=== PATIENT | female | born 1985 | race Caucasian/White ===

== ENCOUNTER → 2017-03-08 | Outpatient (CLI) | payer BC, OTHER ==
[~2017-03-08] MED LIST: HYDR-3720 PO; HYDR-3812 PO; IBP800T PO; ONDA4TAB8 PO; PREN-142 PO
--- NOTE | 2017-03-08 20:17 | Diagnostic Imaging Report ---
EXAMINATION: OB ultrasound. INDICATION: survey. FINDINGS: heart rate is 150 beats per minute. The placenta is posterior. No placenta previa. The cervix is 4.6 cm in length and is closed. anatomy demonstrates no hydronephrosis or cystic mass in the kidney area. Unremarkable posterior fossa. No ventriculomegaly. The bladder is seen with suggestion of two umbilical arteries, and normal appearance of the four-chamber view and stomach is seen. The lower aspect of the spine is not well seen due to position. The growth parameters are: Biparietal diameter: 19 weeks and 2 days. Head circumference: 20 weeks and 1 day. Abdominal circumference: 20 weeks and 2 days. Femur length: 21 weeks and 0 days. These average at: 20 weeks and 2 days. This is concordant with gestational age of 20 weeks and 4 days based on COBY of 07/22/[address] Washington. IMPRESSION: Appropriate interval growth. Followup study in two weeks to reevaluate the lower spine, not well seen due to position, is recommended. Dictated by: Dictated on workstation # [id number]
== END ==
LOC: RAD 14:31
PROVIDERS: ATTEND Obstetrics & Gynecology
DX: Z36 Encounter for antenatal screening of mother (principal); Z87.51 Personal history of pre-term labor
CPT/HCPCS: 76805

== ENCOUNTER 2017-03-12 19:05 | Emergency (ER) | payer OTHER ==
[~2017-03-12] VITALS: Ht 167.6 cm; Wt 73.0 kg
[~2017-03-12 19:05] MED LIST changes: -HYDR-3812 PO; -ONDA4TAB8 PO; -PREN-142 PO
[2017-03-12] MEDS ORDERED: PREN-142 PO (19:26)
[2017-03-12] MEDS ORDERED: fentaNYL INJECTION 100 MCG/2 ML AMP IM STA (19:41)
[2017-03-12] MEDS ORDERED: ONDA4TAB8 PO (19:45)
[2017-03-12] MEDS ORDERED: HYDR-3812 PO (19:45)
[2017-03-12] MEDS ORDERED: ONDANSETRON 4 MG (ZOFRAN) ORAL DISSOLVE TAB PO ONE (19:45)
--- NOTE | 2017-03-12 19:45 | ED Headache ---
General Chief Complaint: Head/Cervical Problems Stated Complaint: MIGRAINE/21 WEEKS Nursing Triage Note: PT TO ED 7 FOR C/O DUQUE ONSET TODAY. REPORTS RECENT DUQUE OVER PAST 2 WKS ACCOMPANIED W/ VISION CHANGES. REPORTS SHE IS GETTING "SUJEY INJECTIONS" TO PREVENT LABOR AND THE DUQUE BEGAN AFTER. NO OTHER C/O VOICED Nursing Sepsis Screen: No Definite Risk Source: patient History of Present Illness Time seen by provider: 19:30 Initial Comments PT C/O HEADACHE SINCE 10:30 THIS AM HEADACHE IS BEHIND EYES, TOP OF HEAD AND POSTERIOR HEAD/UPPER NECK ALSO HAS BEEN HAVING VISION CHANGES TODAY--"STARBURST" AND DECREASED VISION TO LEFT EYE TODAY, BUT NOT RIGHT NOW + NAUSEA, NO VOMITING NO FEVER DID HAVE STREP THROAT 2 WEEKS AGO--SEEN AT [facility] AND GIVEN RX FOR CEFDINIR AND THOSE SYMPTOMS COMPLETELY RESOLVED. HAS NOT TAKEN ANYTHING FOR HEADACHE TODAY--CALLED DR. SANDOVAL'S OFFICE AND SPOKE WITH NURSE AND WAS TOLD SHE COULD TAKE TYLENOL AND EXCEDRIN, BUT DID NOT TAKE EITHER. INSTEAD, SHE WENT TO [facility], WHO THEN SENT PT HERE. PT IS 21 WEEKS PT BEGAN WEEKLY SUJEY INJECTIONS ( MEDROXYPROGESTERONE) 3 WEEKS AGO FOR PREVENTION OF LABOR ( PT DELIVERED AT 35 WEEKS WITH FIRST ) PT STATES SINCE THEN SHE HAS BEEN HAVING HEADACHES. PT LATER STATES HER FIRST HEADACHE WAS A WEEK AGO, AND WAS THE SAME TODAY, EXCEPT HER VISION ON THE RIGHT WAS AFFECTED AT THAT TIME--TODAY IS ON HER LEFT SIDE. STATES THIS IS ONLY THE SECOND HEADACHE SHE HAS HAD SINCE STARTING THESE INJECTIONS LAST INJECTION WAS LAST SUNDAY. LAST SAW DR. SANDOVAL 3 WEEKS AGO, AND NEXT APPOINTMENT IN THIS WEEK 03/15/17 SHE HAS NOT DISCUSSED THESE PROBLEMS WITH DR. SANDOVAL. Allergies and Home Medications Allergies Coded Allergies: No Known Drug Allergies (Verified , 08/06/09) Home Medications Hydrocodone/Acetaminophen 1 Each Tablet, 1 EACH PO Q4H, #10 Prescribed by: SACHA AKINS on 03/12/171944 Ondansetron 4 Mg Tab.rapdis, 4 MG PO Q4H, #10 Prescribed by: SACHA AKINS on 03/12/171944 Vit No.124/Iron/FA 1 Each Tablet, 1 EACH PO, (Reported) Constitutional: no symptoms reported Eyes: See HPI, Blurred Vision, Decreased Acuity, Denies Photophobia, Vision Changes Ears, Nose, Mouth, Throat: no symptoms reported Respiratory: no symptoms reported Cardiovascular: no symptoms reported Gastrointestinal: see HPI, No loss of appetite, nausea, No vomiting Genitourinary: no symptoms reported : Yes Musculoskeletal: no symptoms reported Skin: see HPI Psychiatric/Neurological: See HPI, Headache, Denies Numbness, Denies Paresthesia, Denies Seizure, Denies Tingling, Denies Tremors, Denies Weakness Past Haakspg-Ztvxfw-Yfhiob Hx Patient Social History Alcohol Use: Denies Use Recreational Drug Use: No Smoking Status: Never a Smoker 2nd Hand Smoke Exposure: No Recent Foreign Travel: No Contact w/Someone Who Travel: No Recent Infectious Disease Expo: No Recent Hopitalizations: Yes ("FOR LABOR.") Surgeries HX Surgeries: Yes (ORAL SURGERY A CHILD. HERNIA SURGERY A . DX LAPAROSCOPIES X 4) Surgeries: Abdominal, Appendectomy Respiratory Hx Respiratory Disorders: No Cardiovascular Hx Cardiac Disorders: No Neurological Hx Neurological Disorders: No Reproductive System : Yes Hx : 2 Hx Para: 1 (35 WEEKS GESTATION) Hx Total # of Abortions (Spona: 0 Hx Reproductive Disorders: Yes (CPP) Female Reproductive Disorders: Endometriosis Genitourinary Hx Genitourinary Disorders: No Gastrointestinal Hx Gastrointestinal Disorders: No Musculoskeletal Hx Musculoskeletal Disorders: No Endocrine Hx Endocrine Disorders: No HEENT HX ENT Disorders: No Cancer Hx Cancer: No Psychosocial Hx Psychiatric Problems: No Integumentary HX Skin/Integumentary Disorder: No Blood Transfusions Hx Blood Disorders: No Physical Exam Vital Signs Vital Sign - Last 12Hours 03/12/17 19:13 Temp 97.9 Pulse 83 Resp 18 B/P (MAP) 113/54 Pulse Ox 100 O2 Delivery Room Air Capillary Refill : Less Than 3 Seconds General Appearance: WD/WN, no apparent distress HEENT: PERRL/EOMI, normal ENT inspection, TMs normal, pharynx normal Neck: full range of motion, supple, normal inspection, other (MILD TENDERNESS TO BILATERAL CERVICAL PARASPINAL MUSCLES. NO NUCHAL RIGIDITY OR VERTEBRAL TENDERNESS) Cardiovascular: normal peripheral pulses, regular rate, rhythm, no murmur Respiratory: normal breath sounds, no respiratory distress, no accessory muscle use Gastrointestinal: normal bowel sounds, non tender, soft, other (FHR 150'S) Extremities: normal range of motion, non-tender, normal inspection, no pedal edema, no calf tenderness, normal capillary refill Psychiatric: alert, oriented x 3 Crainal Nerves: normal hearing, normal speech, PERRL Coordination/Gait: normal gait Motor/Sensory: no motor deficit, no sensory deficit, no pronator drift Skin: normal color, warm/dry Progress/Results/Core Measures Results/Orders My Orders Orders - SACHA AKINS DO Ondansetron Oral Dissolve Tab (Zofran (03/12/17 19:45) Fentanyl Injection (Sublimaze Injection (03/12/17 19:41) Medications Given in ED Current Medications Medications Dose Ordered Sig/Roxanna Route Start Time Stop Time Status Last Admin Dose Admin Ondansetron HCl 4 mg ONCE ONCE PO 03/12/17 19:45 03/12/17 19:46 DC 03/12/17 19:53 4 MG Vital Signs/I&O Vital Sign - Last 12Hours 03/12/17 19:13 Temp 97.9 Pulse 83 Resp 18 B/P (MAP) 113/54 Pulse Ox 100 O2 Delivery Room Air Blood Pressure Mean: 73 Departure Communication Progress Notes 1929--SPOKE WITH DR. SANDOVAL. HE ADVISES TO SEND PT HOME WITH RX FOR TYLENOL # 3 OR HYDROCODONE AND HE WILL SEE PT IN OFFICE THIS WEEK SCHEDULED. IS AGREEABLE TO SHOT OF NARCOTICS IN ER. Impression Impression: Primary Impression: Headache Additional Impressions: 21 weeks gestation of PROGESTERONE THERAPY Disposition: HOME, SELF-CARE Condition: Stable Departure-Patient Inst. Referrals: HONEY SANDOVAL,LOCAL PHYSICIAN (PCP) Primary Care Physician Patient Instructions: Headache, Adult (DC), Migraine Headache (DC) Add. Discharge Instructions: LOTS OF CLEAR LIQUIDS FOLLOW UP WITH DR. SANDOVAL THIS WEEK SCHEDULED All discharge instructions reviewed with patient and/or family. Voiced understanding. Scripts Hydrocodone/Acetaminophen (Hydrocodon -Acetaminophen 5-325) 1 Each Tablet 1 EACH PO Q4H, #10 TAB Prov: SACHA AKINS DO 03/12/17 Ondansetron (Zofran Odt) 4 Mg Tab.rapdis 4 MG PO Q4H for Nausea/Vomiting, #10 TAB Prov: SACHA AKINS DO 03/12/17 SACHA AKINS DO March 12, 2017 19:45
[2017-03-12 20:31] VITALS: BP 111/64
== END 2017-03-12 20:31 | disposition home or self-care (01) ==
LOC: EDUNIT# 19:05 → ER 19:09
DX: R51 Headache (principal); O99.89 Other specified diseases and conditions complicating pregnancy, childbirth and the puerperium; Z79.899 Other long term (current) drug therapy; Z3A.21 21 weeks gestation of pregnancy
CPT/HCPCS: 96372; 99282

== ENCOUNTER → 2017-04-04 | Outpatient (CLI) | payer OTHER ==
[~2017-04-04] MED LIST changes: +HYDR-3812 PO; +ONDA4TAB8 PO; +PREN-142 PO
== END ==
LOC: RAD 14:43
PROVIDERS: ATTEND Obstetrics & Gynecology
DX: Z34.90 Encounter for supervision of normal pregnancy, unspecified, unspecified trimester (principal)

== ENCOUNTER → 2017-04-04 | Outpatient (CLI) | payer OTHER ==
--- NOTE | 2017-04-04 17:17 | Diagnostic Imaging Report ---
PROCEDURE: MR imaging of the brain without contrast. TECHNIQUE: Multiplanar, multisequence MR imaging of the brain was performed without contrast. INDICATION: Headache. FINDINGS: The brain parenchyma demonstrates normal signal in the westfall and white matter. There is no hydrocephalus. No extra-axial fluid collection is seen. The brainstem and the cerebellum appear unremarkable. The central vascular flow-voids appear grossly unremarkable. The internal auditory canals are normal in caliber. There is slight asymmetric fullness seen in the right internal auditory canal. This is not associated with increased caliber of the canal. Slice selection artifact through the seventh and eighth nerve is a possible explanation versus a nerve sheath neoplasm or schwannoma. The pituitary gland is normal in size. No sellar, hypothalamic or pineal region mass. The orbits and paranasal sinuses appear grossly unremarkable. IMPRESSION: There is a slight asymmetric fullness seen in the right internal auditory canal, image 8 series 4. Prominent visualization of the seventh and eighth nerves in the canal due to slice selection is possible. A small underlying lesion, such as schwannoma, is not ruled out however. The patient is noted to be . Followup enhanced MRI of the brain with thin sections through the internal auditory canals is the recommended for further evaluation, after delivery. Dictated by: Dictated on workstation # [id number]
== END ==
LOC: RAD 13:40
PROVIDERS: ATTEND Psychiatry & Neurology Neurology
DX: R51 Headache (principal)
CPT/HCPCS: 70551

== ENCOUNTER 2017-06-25 17:30 | Outpatient (CLI) | payer OTHER ==
[~2017-06-25] VITALS: Ht 167.6 cm; Wt 80.5 kg
[2017-06-25 17:47] VITALS: BP 125/74
[2017-06-25] MEDS ORDERED: NS IV 1000 ML 1,000 ML ONE (18:08)
[2017-06-25] MEDS ORDERED: NS IV 1000 ML 1,000 ML IV ONE (18:45)
--- NOTE | 2017-06-26 13:01 | Physician Query-Final Dx ---
JORGE SALAS 06/26/17 1:01pm: Clinic Account Progress/Dx Physician Query: Please give diagnosis Date of Service Jun 25, 2017 at 17:30 HONEY SANDOVAL DO 06/28/17 11:51am: Clinic Account Progress/Dx DIAGNOSIS: Diagnosis 35 week IUP Uterine contraction JORGE SALAS Jun 26, 2017 1:01 pm HONEY SANDOVAL DO Jun 28, 2017 11:51 am
== END 2017-06-25 20:44 | disposition home or self-care (01) ==
LOC: LDRP 17:30 → WSo 17:30
PROVIDERS: ATTEND Obstetrics & Gynecology
DX: O47.03 False labor before 37 completed weeks of gestation, third trimester (principal); Z3A.35 35 weeks gestation of pregnancy
CPT/HCPCS: 96360; 96361; 99213

== ENCOUNTER 2017-07-04 05:07 | Inpatient (IN) | payer OTHER ==
[2017-07-04] VITALS (45 sets, daily range): BP systolic 97–127; BP diastolic 53–65
[~2017-07-04] VITALS: Ht 167.6 cm; Wt 80.3 kg
[2017-07-04 07:18] LABS: BILIRUBIN,URINE NEGATIVE (NEGATIVE); KETONES,URINE 1+ (NEGATIVE); LEUKOCYTE ESTERASE ,URINE 1+ (NEGATIVE); NITRITE,URINE NEGATIVE (NEGATIVE); PH,URINE 7 (5-9); PROTEIN,URINE NEGATIVE (NEGATIVE); UROBILINOGEN,URINE NORMAL (NORMAL)
[2017-07-04 07:27] LABS: SQUAMOUS EPITHELIAL CELL,UR 0-2 /HPF
[2017-07-04] MEDS ORDERED: morphine INJ 10 MG/ML 1ML (SYR OR VIAL) IM ONE (07:45)
[2017-07-04] MEDS ORDERED: morphine INJ 10 MG/ML 1ML (SYR OR VIAL) IVP ONE (07:45)
[2017-07-04 07:51] LABS: BASOPHILS % (AUTO) 0 % (0-10); EOSINOPHILS # (AUTO) 0.1 10^3/uL (0.0-0.3); EOSINOPHILS % (AUTO) 1 % (0-10); LYMPHOCYTES # (AUTO) 2.2 X 10^3 (1.0-4.0); LYMPHOCYTES % (AUTO) 17 % (12-44); MEAN CORPUSCULAR HEMOGLOBIN 32 PG (25-34); MEAN CORPUSCULAR HGB CONC 34 G/DL (32-36); MEAN CORPUSCULAR VOLUME 95 FL (80-99); MEAN PLATELET VOLUME 9.9 FL (7.4-10.4); MONOCYTES # (AUTO) 0.9 X 10^3 (0.0-1.0); MONOCYTES % (AUTO) 7 % (0-12); NEUTROPHILS # (AUTO) 9.3 X 10^3 (1.8-7.8); NEUTROPHILS % (AUTO) 75 % (42-75); PLATELET COUNT 220 10^3/uL (130-400); RED BLOOD COUNT 3.63 10^6/uL (4.35-5.85); RED CELL DISTRIBUTION WIDTH 14.5 % (10.0-14.5); WHITE BLOOD COUNT 12.5 10^3/uL (4.3-11.0)
[2017-07-04] MEDS ORDERED: MINERAL OIL CONCENTRATE 99.9% 15 ML UDC TOP PRN (08:00)
[2017-07-04] MEDS: D5 LR IV SOLUTION 1,000 ML IV SCH ×3 (08:06→23:30)
--- NOTE | 2017-07-04 08:48 | History & Physical-OB ---
OB - Chief Complaint & HPI Date/Time Date of Admission: Date of Admission: Jul 04, 2017 at 7:46 am Time Seen by Provider: 07:35 Chief Complaint/History OB-Reason for Admission/Chief: Onset of Labor Hx : 2 Hx Para: 1 Expected Date of Delivery: Jul 22, 2017 Gestational Age in Weeks: 37 Gestational Age in Days: 3 Other reason for admission: Prolonged latent phase labor and advanced cervical dilatation Admission Nurse Assessment Rev: Yes History of Labs A pos Antibody neg RI RPR NR HBsAg NR HIV NR GC neg GBS neg Allergies and Home Medications Allergies Coded Allergies: No Known Drug Allergies (Verified , 08/06/09) Home Medications Vit No.124/Iron/FA 1 Each Tablet, 1 EACH PO, (Reported) OB - History Hx of Present Care: Yes Ultrasounds: Normal mid trimester US Obstetrical Complications: Other ( labor, and abnormal 1 hr GTT) Medical Complications: None Obstetrical History Hx : 2 Hx Para: 1 Hx Termination: Yes Hx Multiple Gestation: No Hx Stillbirth: No Hx Complication: Yes (" LABOR.") Hx Induced Hypertens: No Hx Maternal Gestational Diabet: No Delivery History Hx Dystocia: No Hx Large For Gestational Age I: No Hx Small for Gestational Age I: No Hx Section: No Hx Vaginal Delivery Post C-Sec: No Hx Blood Disorders: No Patient Past Medical History Endometriosis Social History/Family History Recent Infectious Disease Expo: No 2nd Hand Smoke Exposure: No OB - Admission Exam Physical Exam Date Seen by Provider: Jul 04, 2017 Time Seen by Provider: 07:30 Vitals: Vital Signs 07/04/17 05:20 Temp 97.8 Pulse 86 Resp 18 B/P (MAP) 117/56 HEENT: NCAT Heart: Rhythm Normal Lungs: Clear Abdomen: Gravid Extremities: Normal Reflexes: Normal Cervical Dilatation: 4cm Effacement: 75% Station: -1 Membranes: Intact Heart Rate: 130's Accelerations: Accelerations Present Decelerations: No Decelerations Short Term Variability: Present Enterprise Services Manager Variability: Average (6-25) Contractions on Admission: 6-10 Minutes Apart Intensity: Moderate Labs Laboratory Tests Test 07/04/17 05:45 07/04/17 07:05 Range/Units White Blood Count 12.5 H 4.3-11.0 10^3/uL Red Blood Count 3.63 L 4.35-5.85 10^6/uL Hemoglobin 11.5 11.5-16.0 G/DL Hematocrit 34 L 35-52 % Mean Corpuscular Volume 95 80-99 FL Mean Corpuscular Hemoglobin 32 25-34 PG Mean Corpuscular Hemoglobin Concent 34 32-36 G/DL Red Cell Distribution Width 14.5 10.0-14.5 % Platelet Count 220 130-400 10^3/uL Mean Platelet Volume 9.9 7.4-10.4 FL Neutrophils (%) (Auto) 75 42-75 % Lymphocytes (%) (Auto) 17 12-44 % Monocytes (%) (Auto) 7 0-12 % Eosinophils (%) (Auto) 1 0-10 % Basophils (%) (Auto) 0 0-10 % Neutrophils # (Auto) 9.3 H 1.8-7.8 X 10^3 Lymphocytes # (Auto) 2.2 1.0-4.0 X 10^3 Monocytes # (Auto) 0.9 0.0-1.0 X 10^3 Eosinophils # (Auto) 0.1 0.0-0.3 10^3/uL Basophils # (Auto) 0.0 0.0-0.1 10^3/uL Urine Color YELLOW Urine Clarity CLEAR Urine pH 7 5-9 Urine Specific [place] 1.010 L 1.016-1.022 Urine Protein NEGATIVE NEGATIVE Urine Glucose (UA) NEGATIVE NEGATIVE Urine Ketones 1+ H NEGATIVE Urine Nitrite NEGATIVE NEGATIVE Urine Bilirubin NEGATIVE NEGATIVE Urine Urobilinogen NORMAL NORMAL MG/DL Urine Leukocyte Esterase 1+ H NEGATIVE Urine RBC (Auto) NEGATIVE NEGATIVE Urine RBC NONE /HPF Urine WBC NONE /HPF Urine Squamous Epithelial Cells 0-2 /HPF Urine Crystals NONE /LPF Urine Bacteria NEGATIVE /HPF Urine Casts NONE /LPF Urine Mucus NEGATIVE /LPF Urine Culture Indicated NO OB - Assessment/Plan/Diagnosis Assessment Assessment: other (Prolonged latent phase labor) Plan Plan: Expectant Management Discharge Diagnosis Diagnosis: 32 yo @ 37.3 Prolonged latent phase labor GBS neg Hx of PTL and delivery at 35 weeks HONEY SANDOVAL DO Jul 04, 2017 8:48 am
[2017-07-04] MEDS ORDERED: ONDANSETRON 4 MG/2 ML (SDV) Z0FRAN IVP ONE (09:45)
[2017-07-04] MEDS ORDERED: CALCIUM CARBONATE 500 MG (TUMS) TAB.CHEW ONE (09:47)
[2017-07-04] MEDS ORDERED: CALCIUM CARBONATE 500 MG (TUMS) TAB.CHEW PO NR (10:00)
[2017-07-04] MEDS ORDERED: AMOX500C2 PO (12:12)
[2017-07-04] MEDS ORDERED: ACETAMINOPHEN 500 MG TAB (TYLENOL) ONE (14:45)
[2017-07-04] MEDS: ACETAMINOPHEN 500 MG TAB (TYLENOL) PO ONE (15:03)
[2017-07-04] MEDS ORDERED: FAMOTIDINE 20MG/2ML IV (PEPCID) IVP NR (15:45)
[2017-07-04] MEDS: CATHETER FLUSH 10 ML SYR IV SCH ×3 (15:54→22:00)
[2017-07-04] MEDS ORDERED: SUFENTA 0.6MCG/ML BUPIVA 0.125 100 ML ONE (17:50)
[2017-07-04] MEDS ORDERED: BUPIVACAINE 0.25% 30 ML (SENSORCAINE) VIAL ONE (18:23)
[2017-07-04] MEDS ORDERED: fentaNYL INJECTION 100 MCG/2 ML AMP ONE (18:23)
[2017-07-04] MEDS ORDERED: LACTATED RINGERS 1,000 ML IV SCH (19:52)
[2017-07-04] MEDS ORDERED: diphenhydrAMINE 50 MG/ML INJ (BENADRYL) IV PRN (20:00)
[2017-07-04] MEDS ORDERED: ONDANSETRON 4 MG/2 ML (SDV) Z0FRAN IV PRN (20:00)
[2017-07-04] MEDS ORDERED: EPIDURAL (SUFENTA 0.6MCG/ML BUPIVA 0.125%) 100 ML BAG EPI PRN (20:00)
[2017-07-04] MEDS ORDERED: NALOXONE 0.4 MG/ML 1 ML (NARCAN) VIAL IV PRN ×2 (20:00)
[2017-07-04] MEDS ORDERED: METOCLOPRAMIDE INJ 10 MG/2 ML (REGLAN) IV PRN (20:00)
[2017-07-04] MEDS ORDERED: OXYTOCIN/NORMAL SALINE 500 ML IV ONE (20:24)
[2017-07-04] MEDS ORDERED: LIDOCAINE/EPI 2% 1:200,00 (XYLOCAINE) 10 ML VIAL ONE (20:24)
[2017-07-04] MEDS ORDERED: OXYTOCIN/NORMAL SALINE 500 ML IV SCH (21:40)
[2017-07-04] MEDS ORDERED: TETANUS,DIPTH,PERTUSS P/F (BOOSTRIX) 0.5 ML VIAL IM ONE (21:45)
[2017-07-04] MEDS ORDERED: DIBUCAINE (NUPERCAINAL) 1% OINT 30 GM TOP PRN (21:45)
[2017-07-04] MEDS ORDERED: MEASLES,MUMPS,RUBELLA 1 EA INJ SQ ONE (21:45)
[2017-07-04] MEDS ORDERED: APAP 300 MG/CODEINE 30 MG (TYLENOL #3) TAB PO PRN (21:45)
--- NOTE | 2017-07-04 21:50 | OB Labor & Delivery Record ---
L&D History Date of Service Date of Service: Jul 04, 2017 History Expected Date of Delivery: Jul 22, 2017 Gestational Age in Weeks: 37 Hx : 2 Hx Para: 1 Complications Events: Labor <37 wks, Routine care Operative Indications (Cesarea: N/A-Vaginal Delivery Intrapartal Events: None L&D Stage1 Stage One Onset of Labor - Date: Jul 04, 2017 Monitors and Tracing Monitor Mode: External Heart Rate: 115 Monitor Decelerations: None Station: -3 Vital Signs VS - Last 72 Hours, by Label 07/04/17 07/04/17 07/04/17 07/04/17 05:20 08:10 08:30 09:30 Temp 97.8 98.1 Pulse 86 89 84 84 Resp 18 18 18 18 B/P (MAP) 117/56 124/58 117/55 104/55 Pulse Ox 98 O2 Delivery Room Air Room Air Room Air 07/04/17 07/04/17 07/04/17 07/04/17 10:30 11:30 12:00 12:15 Temp 98.2 Pulse 78 70 70 Resp 18 18 18 B/P (MAP) 108/58 106/59 103/59 O2 Delivery Room Air Room Air Room Air Room Air 07/04/17 07/04/17 13:15 14:15 Temp 98.1 Pulse 72 71 Resp 18 18 B/P (MAP) 104/60 102/59 Pulse Ox 98 O2 Delivery Room Air Room Air Rupture of Membranes Spontaneous Ruture of Membrane: No Amniotic Membrane Rupture Time: 18:15 Amniotic Membrane Fluid Desc.: Clear Vaginal Bleeding Description: Normal Show Induction/Anesthesia Epidural Cath Placement - Time: 1851 Progress/Notes Latent labor went unaugmented throughout the day, the patient made cervical change to 5 cm but much more effaced at 100%. AROM was performed and epidural was obtained. Patient progressed to complete and +1 L&D Stage2 Stage Two Stage II Date: Jul 04, 2017 Monitors and Tracing Monitor Mode: External Heart Rate: 115 Monitor Decelerations: Variable Prison Variability: Minimal (3-5) Short Term Variability: Present Position: Right Occiput Anterior Presentation: Vertex Cord Descript/Complications Cord Vessel Description: 3 Vessels Delivery Type Delivery Method: Spontaneous Vaginal Anterior Shoulder: Right Episiotomy/Perineal Laceration Laceraction(s)/Extensions: Yes Episiotomy Description: Midline Degree (describe repair) midline episiotomy repaired using 3-0 vicryl suture Condition of Delivery 1 minute Comment: 9 5 minute Comment: 9 Notes live male weight pending Condition of Infant Condition of : Living Exam: No Observed Abnormalities Resuscitation Resuscitation: N/A - Spontaneous Resp L&D Stage3 Stage Three Stage III Date: Jul 04, 2017 Pictocin Pitocin Administration Comment: 30 mu wide open at delivery of placenta Placenta Delivery Placenta Delivery: Spontaneous Delivery Summary Summary blood loss >1000ml: No Vaginal blood loss >500ml: No 300 Attending at delivery: Dylan Sandoval DO Condition of Delivery Examined: Cervix Examined, Uterus Explored Post Hemorrhage: No Condition of Mother stable Condition of (s) stable DYLAN SANDOVAL DO Jul 04, 2017 9:50 pm
[2017-07-05] VITALS: BP 111/57
[2017-07-05] MEDS: WITCH HAZEL(TUCKS) 40 EA JAR TOP PRN (00:03)
[2017-07-05] MEDS: IBUPROFEN 600 MG (MOTRIN) TAB PO SCH ×4 (00:04→18:20)
[2017-07-05] MEDS: BENZOCAINE/MENTHOL (DERMOPLAST) 56 ML CAN TP PRN (00:04)
[2017-07-05 03:36] VITALS: BP 109/70
[2017-07-05] MEDS ORDERED: LIDOCAINE/EPI 2% 1:200,00 (XYLOCAINE) 10 ML VIAL INJ ONE (05:00)
[2017-07-05 05:39] LABS: BASOPHILS % (AUTO) 0 % (0-10); EOSINOPHILS # (AUTO) 0.1 10^3/uL (0.0-0.3); EOSINOPHILS % (AUTO) 0 % (0-10); LYMPHOCYTES # (AUTO) 1.7 X 10^3 (1.0-4.0); LYMPHOCYTES % (AUTO) 12 % (12-44); MEAN CORPUSCULAR HEMOGLOBIN 31 PG (25-34); MEAN CORPUSCULAR HGB CONC 33 G/DL (32-36); MEAN CORPUSCULAR VOLUME 94 FL (80-99); MEAN PLATELET VOLUME 9.1 FL (7.4-10.4); MONOCYTES # (AUTO) 0.9 X 10^3 (0.0-1.0); MONOCYTES % (AUTO) 6 % (0-12); NEUTROPHILS % (AUTO) 82 % (42-75); PLATELET COUNT 242 10^3/uL (130-400); RED BLOOD COUNT 3.84 10^6/uL (4.35-5.85); RED CELL DISTRIBUTION WIDTH 14.5 % (10.0-14.5); WHITE BLOOD COUNT 14.7 10^3/uL (4.3-11.0)
[2017-07-05] MEDS: CATHETER FLUSH 10 ML SYR IV SCH ×4 (06:49→22:00)
[2017-07-05 07:46] VITALS: BP 104/64
[2017-07-05] MEDS: FERROUS SULF 325 MG (IRON) TAB PO SCH (08:12)
[2017-07-05] MEDS: DOCUSATE SODIUM 100 MG (COLACE) CAP PO SCH ×2 (08:12→20:20)
[2017-07-05] MEDS: PRENATAL VITAMIN 1 EA TAB PO SCH (08:13)
[2017-07-05] MEDS: DOCUSATE CALCIUM 240 MG (SURFAK) CAP PO SCH (09:00)
[2017-07-05 11:03] VITALS: BP 98/61
--- NOTE | 2017-07-05 14:06 | Anesthesia-Regional Post-Op ---
Regional Patient Condition Mental Status: Alert, Oriented x3 Circulation: Same as Pre-Op Headache: Absent Sensation: Full Recovery Motor Block: Absent Post Op Complications Complications None Follow Up Care/Instructions Patient Instructions None needed. Anesthesia/Patient Condition Patient is doing well, no complaints, stable vital signs, no apparent adverse anesthesia problems. No complications reported per nursing. MAGDALENO SPEARS CRNA Jul 05, 2017 14:06
[2017-07-05 16:15] VITALS: BP 107/66
[2017-07-06] VITALS: BP 103/70
[2017-07-06] MEDS: IBUPROFEN 600 MG (MOTRIN) TAB PO SCH ×3 (00:20→13:00)
[2017-07-06] MEDS: CATHETER FLUSH 10 ML SYR IV SCH (06:00)
[2017-07-06] MEDS ORDERED: FERR-74 PO (08:33)
[2017-07-06] MEDS ORDERED: DOCU100C37 PO (08:33)
[2017-07-06] MEDS ORDERED: IBUP-1773 PO (08:33)
[2017-07-06] MEDS ORDERED: ACET1TAB43 PO (08:33)
[2017-07-06] MEDS ORDERED: BENZ56AE2 TP (08:33)
--- NOTE | 2017-07-06 08:35 | Discharge Inst-Women's Service ---
Discharge Inst-Women's Serv Depart Medication/Instructions New, Converted or Re-Newed RX: RX on Chart Consults/Follow Up Additional Follow Up: Yes Orders/Referrals Dr. Sandoval in 6 weeks Activity Activity: Activity as Tolerated Driving Instructions: No Driving for 1 Week NO SMOKING: NO SMOKING Nothing Inside Vagina: No Douching, No [place], No Tampons Diet Discharge Diet: No Restrictions Symptoms to Report to : Bleeding Excessive, Pain Increased, Fever Over 101 Degrees F, Vaginal Bleeding Increase, Questions/Concerns For Any Problems or Questions: Contact Your Physician Skin/Wound Care Bathing Instructions: Shower (x 2 weeks) HONEY SANDOVAL DO Jul 06, 2017 8:35 am
[2017-07-06 09:16] VITALS: BP 108/65
[2017-07-06] MEDS: BENZOCAINE/MENTHOL (DERMOPLAST) 56 ML CAN TP PRN (09:19)
[2017-07-06] MEDS: PRENATAL VITAMIN 1 EA TAB PO SCH (09:19)
[2017-07-06] MEDS: DOCUSATE SODIUM 100 MG (COLACE) CAP PO SCH (09:19)
[2017-07-06] MEDS: FERROUS SULF 325 MG (IRON) TAB PO SCH (09:19)
[2017-07-06] MEDS: WITCH HAZEL(TUCKS) 40 EA JAR TOP PRN (09:19)
--- NOTE | 2017-07-06 09:59 | Progress Note-Standard ---
Standard Progress Note Progress Notes/Assess & Plan Date Seen by Provider: Jul 06, 2017 Time Seen by Provider: 09:15 Progress/Assessment & Plan Patient doing well day 2 from normal vaginal delivery. She is ambulating and voiding freely. She denies lightheadedness or dizziness upon ambulation. She reports lochia is very light. She is attempting to breast- feed however infant is currently under the bilirubin lights. Vital Sign - Last 24 Hours 07/05/17 07/05/17 07/06/17 11:03 16:15 00:00 Temp 98.1 97.6 97.4 Pulse 96 72 84 Resp 18 16 16 B/P (MAP) 98/61 107/66 103/70 Pulse Ox 97 99 99 O2 Delivery Room Air Room Air Room Air Uterine fundus firm and palpated below the umbilicus Diagnosis: day two normal vaginal delivery Plan: Anticipate discharge later today precautions reviewed with the patient as well as follow-up HONEY SANDOVAL DO Jul 06, 2017 9:59 am
[2017-07-06] MEDS: DOCUSATE CALCIUM 240 MG (SURFAK) CAP PO SCH (12:30)
== END 2017-07-06 13:25 | disposition home or self-care (01) | DRG 775 ==
LOC: LDRP 05:07 → WSo 05:07 → LDRP 07:46
PROVIDERS: ADMIT Obstetrics & Gynecology; ATTEND Obstetrics & Gynecology
PROC: 10E0XZZ Delivery of Products of Conception, External Approach (ICD-10-PCS; principal; 2017-07-04)
PROC: 0W8NXZZ Division of Female Perineum, External Approach (ICD-10-PCS; 2017-07-04)
DX: O63.0 Prolonged first stage (of labor) (principal); Z37.0 Single live birth; Z3A.37 37 weeks gestation of pregnancy
CPT/HCPCS: 36415; 81000; 85025; 86850; 86900; 86901; 99212

== ENCOUNTER 2018-12-25 08:50 | Outpatient (CLI) | payer OTHER ==
[~2018-12-25] VITALS: Ht 167.6 cm; Wt 67.2 kg
[~2018-12-25 08:50] MED LIST changes: +ACET1TAB43 PO; +ACHD5005 PO; +AMOX500C2 PO; +BENZ56AE2 TP; +DOCU100C37 PO; +FERR325T18 PO; -HYDR-3812 PO; +IBUP-1773 PO
[2018-12-25 09:03] VITALS: BP 121/62
[2018-12-25 09:57] LABS: BASOPHILS % (AUTO) 0 % (0-10); EOSINOPHILS % (AUTO) 1 % (0-10); HEMATOCRIT 42 % (35-52); LYMPHOCYTES # (AUTO) 1.8 X 10^3 (1.0-4.0); LYMPHOCYTES % (AUTO) 26 % (12-44); MEAN CORPUSCULAR HEMOGLOBIN 30 PG (25-34); MEAN CORPUSCULAR HGB CONC 34 G/DL (32-36); MEAN CORPUSCULAR VOLUME 90 FL (80-99); MEAN PLATELET VOLUME 9.5 FL (7.4-10.4); MONOCYTES # (AUTO) 0.4 X 10^3 (0.0-1.0); MONOCYTES % (AUTO) 6 % (0-12); NEUTROPHILS # (AUTO) 4.4 X 10^3 (1.8-7.8); NEUTROPHILS % (AUTO) 67 % (42-75); PLATELET COUNT 272 10^3/uL (130-400); RED CELL DISTRIBUTION WIDTH 13.6 % (10.0-14.5); WHITE BLOOD COUNT 6.7 10^3/uL (4.3-11.0)
[2018-12-26] MEDS ORDERED: HYDR-34 PO (07:40)
[2018-12-26] MEDS ORDERED: IBUP-844 PO (07:40)
[2018-12-26] MEDS ORDERED: DOCU100C37 PO (07:40)
== END 2018-12-25 13:59 | disposition home or self-care (01) ==
LOC: PREOP 08:50
PROVIDERS: ATTEND Obstetrics & Gynecology
DX: Z01.812 Encounter for preprocedural laboratory examination (principal); Z11.2 Encounter for screening for other bacterial diseases; N80.9 Endometriosis, unspecified; R10.2 Pelvic and perineal pain; N87.9 Dysplasia of cervix uteri, unspecified
CPT/HCPCS: 36415; 84703; 85025; 87081

== ENCOUNTER 2018-12-26 07:00 | Day surgery (SDC) | payer OTHER ==
[~2018-12-26] VITALS: Ht 167.6 cm; Wt 67.2 kg
--- OUTSIDE RECORDS SUMMARY | 2018-12-26 07:08 | XMS REPORT ---
Author Author SIDNEY HARTLEY [facility] Address [address] [place] [address] Care Team Providers Care Food Cooking Machine Operator Name Role Phone SIDNEY HARTLEY Unavailable PROBLEMS Unknown Problems ALLERGIES No Known Allergies SOCIAL HISTORY Never Assessed PLAN OF CARE VITAL SIGNS Weight 153.4 lbs 2016-12-13 Temperature 99.0 degrees Fahrenheit 2016-12-13 Heart Rate 96 bpm 2016-12-13 Respiratory Rate 20 2016-12-13 Blood pressure systolic 112 mmHg 2016-12-13 Blood pressure diastolic 64 mmHg 2016-12-13 MEDICATIONS Medication Instructions Dosage Frequency Start Date End Date Duration Status Amoxicillin 500 MG Orally every 12 hrs 1 capsule 12h Active Amoxicillin 500 MG Orally 3 times a day 1 capsule 8h Dec, Dec, 10 day(s) Active Saline Nasal [place] 0.65 % Active RESULTS No Results PROCEDURES No Known procedures IMMUNIZATIONS No Known Immunizations
--- OUTSIDE RECORDS SUMMARY | 2018-12-26 07:08 | XMS REPORT ---
Author Author АННА DIAZ Organization [facility] Address [address] [place] [address] Care Team Providers Care Control Operator Name Role Phone АННА DIAZ Unavailable PROBLEMS Unknown Problems ALLERGIES No Known Allergies ENCOUNTERS Encounter Location Date Diagnosis [facility] [id number] [place] [phone] Jun, Pain of right tibia M89.8X6 ; Contusion of right lower extremity, initial encounter S80.11XA and Laryngitis J04.0 [facility] [id number] [place] [phone] Dec, Other viral agents as the cause of diseases classified elsewhere B97.89 and Acute upper respiratory infection, unspecified J06.9 [place] [id number], [place] [address] Sep, [facility] [id number] [place] [phone] March, IMMUNIZATIONS No Known Immunizations SOCIAL HISTORY Never Assessed REASON FOR VISIT Right leg pain- got hit with a softball last night JStrasserRN, Loss of voice started today PLAN OF CARE Activity Details Follow Up prn Reason: VITAL SIGNS Weight 147.4 lbs 2018-07-04 Temperature 97.7 degrees Fahrenheit 2018-07-04 Heart Rate 80 bpm 2018-07-04 Respiratory Rate 20 2018-07-04 Blood pressure systolic 100 mmHg 2018-07-04 Blood pressure diastolic 70 mmHg 2018-07-04 MEDICATIONS No Known Medications RESULTS Name Result Date Reference Range Xray : Tibia/Fibula, Right (IN HOUSE) 2018-07-04 PROCEDURES Procedure Date Ordered Result Body Site X-RAY EXAM OF LOWER LEG Jul 04, 2018 INSTRUCTIONS MEDICATIONS ADMINISTERED No Known Medications MEDICAL (GENERAL) HISTORY Type Description Date Hospitalization History Childbirth x2
--- OUTSIDE RECORDS SUMMARY | 2018-12-26 07:08 | XMS REPORT ---
Author Author АННА DIAZ Organization [facility] Address [address] [place] [address] Care Team Providers Care Hydroponics Worker Name Role Phone АННА DIAZ Unavailable PROBLEMS Unknown Problems ALLERGIES No Known Allergies ENCOUNTERS Encounter Location Date Diagnosis [facility] [address] [phone] Oct, Acute nasopharyngitis J00 [facility] [id number] [place] [phone] Jun, Pain of right tibia M89.8X6 ; Contusion of right lower extremity, initial encounter S80.11XA and Laryngitis J04.0 [facility] [id number] [place] [phone] Dec, 2016 Other viral agents as the cause of diseases classified elsewhere B97.89 and Acute upper respiratory infection, unspecified J06.[address] [place] [id number] [place] [phone] Sep, [facility] [address] [phone] March, IMMUNIZATIONS No Known Immunizations SOCIAL HISTORY Never Assessed REASON FOR VISIT Cold symptoms; trouble hearing, light-headedness, sore throat, headache, cough - MPeters, [place], taking NyQuil and Sudafed; NyQuil not helping PLAN OF CARE Activity Details Follow Up prn Reason: VITAL SIGNS Height 67.5 in 2018-10-08 Weight 149.8 lbs 2018-10-08 Temperature 98.6 degrees Fahrenheit 2018-10-08 Heart Rate 120 bpm 2018-10-08 Respiratory Rate 20 2018-10-08 BMI 23.11 kg/m2 2018-10-08 Blood pressure systolic 100 mmHg 2018-10-08 Blood pressure diastolic 66 mmHg 2018-10-08 MEDICATIONS No Known Medications RESULTS No Results PROCEDURES No Known procedures INSTRUCTIONS MEDICATIONS ADMINISTERED No Known Medications MEDICAL (GENERAL) HISTORY Type Description Date Hospitalization History Childbirth x2
[2018-12-26] MEDS ORDERED: LACTATED RINGERS 1,000 ML IV PRN (07:25)
[2018-12-26] MEDS ORDERED: NS (IVPB) 0 ML ONE (07:29)
[2018-12-26] MEDS ORDERED: ESTRADIOL VAGINAL CREAM 42.5 GM (ESTRACE) VG ONE (07:29)
[2018-12-26] MEDS ORDERED: VASOPRESSIN INJECTION 20 UNIT/ML VIAL ONE (07:29)
[2018-12-26] MEDS ORDERED: BUPIVACAINE 0.25% 30 ML (SENSORCAINE) VIAL ONE (07:29)
[2018-12-26] MEDS ORDERED: metroNIDAZOLE 500MG/100ML IVPB 100 ML IV ONE (07:30)
[2018-12-26] MEDS ORDERED: ceFAZolin 1,000 MG/SWFI 10 ML IV PUSH IV ONE ×2 (07:30)
[2018-12-26] MEDS ORDERED: LACTATED RINGERS 1,000 ML IV SCH (07:35)
[2018-12-26] MEDS ORDERED: MIDAZOLAM 2 MG/2 ML (VERSED) VIAL ONE ×2 (07:38→08:23)
[2018-12-26] MEDS ORDERED: LIDOCAINE PF 2% 5 ML (XYLOCAINE) VIAL ONE (07:38)
[2018-12-26] MEDS ORDERED: fentaNYL INJECTION 100 MCG/2 ML AMP ONE ×2 (07:38→09:48)
[2018-12-26] MEDS ORDERED: proPOfol 200 MG/20 ML (DIPRIVAN) VIAL IV ONE (07:38)
[2018-12-26] MEDS ORDERED: ROCURONIUM 10 MG/ML 5 ML SYRINGE IV ONE (07:38)
[2018-12-26] MEDS ORDERED: ONDANSETRON 4 MG/2 ML (SDV) Z0FRAN ONE ×2 (07:38→11:57)
--- NOTE | 2018-12-26 07:38 | Discharge Inst-Women's Service ---
Discharge Inst-Women's Serv Depart Medication/Instructions New, Converted or Re-Newed RX: RX on Chart Final Diagnosis PO ZENAIDA lozano SO Consults/Follow Up Additional Follow Up: Yes Orders/Referrals Dr. Washington in 7-10 days and in 8 weeks Activity Activity: Activity as Tolerated Driving Instructions: No Driving for 1 Week NO SMOKING: NO SMOKING Nothing Inside Vagina: No Douching, No [place], No Tampons Diet Discharge Diet: No Restrictions Symptoms to Report to : Bleeding Excessive, Pain Increased, Fever Over 101 Degrees F, Vaginal Bleeding Increase, Questions/Concerns For Any Problems or Questions: Contact Your Physician Skin/Wound Care Infection Signs and Symptoms: Increased Redness, Foul Odor of Wound, Increased Drainage, Skin Itchy or Has a Rash, Increased Swelling, Temperature Above 101 F Operative Area Clean and Dry: Keep Incision Clean/Dry Stitches/Nilson/Dermabond: Dermabond, Care of Stitches Bathing Instructions: HONEY Hargrove DO Dec 26, 2018 07:38
[2018-12-26] MEDS: LACTATED RINGERS 1,000 ML IV SCH ×2 (07:39→09:38)
[2018-12-26] MEDS ORDERED: DEXAMETHASONE 10 MG/ML (DECADRON) 1 ML VIAL ONE (07:39)
[2018-12-26] MEDS ORDERED: SEVOFLURANE (ULTANE) 15 ML INHAL SOLN ONE ×5 (07:39→08:23)
[2018-12-26] MEDS ORDERED: IBUP-844 PO (07:40)
[2018-12-26] MEDS ORDERED: HYDR-34 PO (07:40)
[2018-12-26] MEDS ORDERED: DOCU100C37 PO (07:40)
[2018-12-26] MEDS ORDERED: ANTACID SUSP 30 ML UDC (MYLANTA) PO PRN (07:45)
[2018-12-26] MEDS ORDERED: HYDROcodone/APAP 7.5 MG/325 MG (LORTAB, LORCET PLUS) TABLET PO PRN (07:45)
[2018-12-26] MEDS ORDERED: DOCUSATE SODIUM 100 MG (COLACE) CAP PO PRN (07:45)
[2018-12-26] MEDS ORDERED: CATHETER FLUSH 10 ML SYR IV PRN (07:45)
[2018-12-26] MEDS ORDERED: ZOLPIDEM 5 MG (AMBIEN) TAB PO PRN (07:45)
[2018-12-26] MEDS ORDERED: SIMETHICONE 80 MG (MYLICON) CHEW PO PRN (07:45)
[2018-12-26] MEDS ORDERED: CHLORASEPTIC LOZENGE MM PRN (07:45)
[2018-12-26] MEDS ORDERED: MIDAZOLAM 2 MG/2 ML (VERSED) VIAL IV ONE (08:00)
--- NOTE | 2018-12-26 08:31 | Progress Note-Pre Operative ---
Pre-Operative Progress Note H&P Reviewed The H&P was reviewed, patient examined and no changes noted. Date Seen by Provider: Dec 26, 2018 Time Seen by Provider: 08:30 Date H&P Reviewed: Dec 26, 2018 Time H&P Reviewed: 08:30 Pre-Operative Diagnosis: CPP, ENDOMETRIOSIS HONEY SANDOVAL DO Dec 26, 2018 08:31
[2018-12-26] MEDS ORDERED: KETOROLAC 30 MG/ML VIAL ONE (09:42)
[2018-12-26] MEDS ORDERED: NEOSTIGMINE 1 MG/ML 5 ML SYRINGE ONE (09:42)
[2018-12-26] MEDS ORDERED: GLYCOPYRROLATE 0.2 MG/ML (ROBINUL) 2 ML VIAL ONE ×2 (09:42)
[2018-12-26] MEDS ORDERED: PHENYLEPHRINE 100 MCG/ML 10 ML (ANESTHESIA) SYR ONE (09:42)
[2018-12-26] MEDS: KETOROLAC 30 MG/ML VIAL IV PRN ×3 (09:50→23:06)
[2018-12-26] MEDS ORDERED: ONDANSETRON 4 MG/2 ML (SDV) Z0FRAN IVP PRN (10:15)
[2018-12-26] MEDS ORDERED: HYDROmorphone 2 MG/ML VIAL (DILAUDID) IV ONE ×2 (10:15→15:15)
[2018-12-26] MEDS ORDERED: morphine INJ 10 MG/ML 1ML (SYR OR VIAL) IVP ONE (10:15)
[2018-12-26] MEDS ORDERED: MEPERIDINE (DEMEROL) INJ 50 MG/ML IVP ONE (10:15)
[2018-12-26] MEDS ORDERED: PROMETHAZINE INJ 25 MG/ML (PHENERGAN) AMP IVP ONE ×2 (10:15→15:15)
[2018-12-26] MEDS ORDERED: morphine INJ 10 MG/ML 1ML (SYR OR VIAL) ONE (10:19)
[2018-12-26] MEDS ORDERED: HYDROmorphone 2 MG/ML VIAL (DILAUDID) ONE ×2 (10:38→15:00)
--- NOTE | 2018-12-26 11:40 | NUR ---
pt transferred to OB via bed with PACU staff @ side. pt has eyes closed, c/o nausea from transport to unit. bedside report received from ARACELI Vicente.
[2018-12-26 11:42] VITALS: BP 98/51
--- NOTE | 2018-12-26 11:42 | NUR ---
vs taken. @ side. call light within reach.
--- NOTE | 2018-12-26 11:45 | NUR ---
initial shift assessment completed, see interventions for further. lapsites x3. band-aids x3, D/I. quinn to DD with clear, yellow urine noted in chamber. SCD's to LE's. IV site patent.
--- NOTE | 2018-12-26 11:56 | NUR ---
Motrin, Colace and Lortab Rx's given to pt's .
[2018-12-26] MEDS: ONDANSETRON 4 MG/2 ML (SDV) Z0FRAN IV PRN ×3 (12:05→19:46)
--- NOTE | 2018-12-26 12:05 | NUR ---
Zofran 4mg IV given for c/o's nausea. emesis basin @ side. lights out. will cont to monitor.
--- NOTE | 2018-12-26 13:20 | NUR ---
pt cont to c/o nausea. was called. order received to repeat zofran 4mg IV now.
--- NOTE | 2018-12-26 14:55 | NUR ---
was notified r/t pt's cont c/o nausea with minimal head or body movement & pain. order received for Phenergan 12.5mg IV and Dilaudid 1mg IV now.
[2018-12-26] MEDS ORDERED: PROMETHAZINE INJ 25 MG/ML (PHENERGAN) AMP ONE (15:02)
--- NOTE | 2018-12-26 15:05 | OPERATIVE REPORT ---
DATE OF SERVICE: PREOPERATIVE DIAGNOSES: 1. A 33-year-old female with chronic pelvic pain. 2. Severe endometriosis. 3. Recurrent cervical dysplasia. POSTOPERATIVE DIAGNOSES: 1. A 33-year-old female with chronic pelvic pain. 2. Severe endometriosis. 3. Recurrent cervical dysplasia. PROCEDURES: Robotic-assisted total laparoscopic hysterectomy with bilateral salpingectomy and left oophorectomy. SURGEON: Ant Sandoval DO. ANESTHESIA: General endotracheal. ESTIMATED BLOOD LOSS: Minimal. URINE OUTPUT: 300 mL clear at the end of the procedure. FLUIDS: 1700 mL lactated Ringer solution. FINDINGS: Grossly normal appearing external female genitalia with no evidence of lesion on the cervix. There are significant filmy adhesions of the pelvic peritoneum as well as globular extensions off of the uterus that are mucoid appearing, evidence of recently suppressed endometriosis, large Erik-Masters windows on the left uterosacral ligament. Grossly normal appearing bilateral fallopian tubes. Adhesions of the left ovary to the anterior leaflet and anterior aspect of the uterine serosa and broad ligament. SPECIMEN SENT: Uterus, bilateral fallopian tubes and left ovaries. INDICATIONS FOR PROCEDURE: This 33-year-old female was a patient that has sought my care for nearly 5 years now. When initially she was seen she was told a hysterectomy was necessary to treat her ongoing pelvic pain. The patient still requested the possibility of childbearing in the future, so we did do a course of Depo Lupron almost five years ago. Since that time, the patient has since had a child and is now from that child approximately a year and a half. She began having significant amount of pain approximately 8 to 10 months ago at which point we discussed proceeding with a hysterectomy at that point; however, due to the patient still desiring the possibility of possible childbearing down the line, we decided to go with a GNRH antagonist for short term to see if this would improve her pain and it did; however, at her annual examination, dysplasia was noted and was confirmed again on colposcopy. At that point, the patient has become frustrated with her ongoing pain issues and wishes to have more definitive measures taken. We had previously discussed hysterectomy. She wants to move forward with this at this time. Risks of procedure were discussed with the patient in detail including the risks of bleeding, infection, damage to surrounding structures including, but not limited to bowel, bladder, ureter and kidneys. We discussed long-term hormone replacement therapy after a trial of suppression of the endometriosis for 6 to 9 months postoperatively. We also discussed in detail the postoperative expectations as well as recovery time frame. After all of her questions were answered with her and her present, consent was obtained in the preoperative area and the patient was taken to the operating room. OPERATIVE REPORT IN DETAIL: Once in the operating room, general anesthesia was found to be adequate. She was placed in a dorsal lithotomy position, prepped and draped in a normal sterile fashion. A timeout was performed. Liz catheter was placed using a sterile technique. A weighted speculum was inserted into the patient's vagina. A right angle retractor was utilized to cervix, which was grasped at 12 o'clock position using a long Allis clamp and 0 Vicryl suture was then placed through the anterior lip of the cervix and the clamp was removed. The suture was then used as my retraction point. I then gently sound the uterine cavity, which was found to be 8 cm. I then selected an 8 cm Verito uterine manipulator tip and a 3.5 cm colpotomy ring. I placed the manipulator tip into the endometrial cavity deploying the balloon and advancing the colpotomy ring around the vaginal fornix. Excellent bimanual manipulation was noted with the manipulator after that was done. I then removed all the other instruments from the patient's vagina, performed changed gloves and took my attention to the abdomen where infraumbilically I infiltrated this area using 0.25% Marcaine. I made an 8 mm incision using a knife and introduced a Veress needle through the incision until intraperitoneal placement confirmed using a saline drop test. I then proceeded with insufflation using CO2 gas and opening pressure of 4 mmHg was noted and then I proceeded to maximum pressure of 15 mmHg, at which point I removed the Veress needle and introduced an 8 mm blunt da Ellie camera trocar. Once this was in place, I was able to confirm a trocar placement using the da Ellie laparoscope. There was no evidence of damage upon entry. A brief scan of the upper abdominal anatomy appears grossly normal. I then had the patient placed in a steep Trendelenburg where I was able to visualize all of my findings as described above. I then placed two lateral trocars; these were both 8 mm trocars. I infiltrated the skin using 0.25% Marcaine approximately 8 cm lateral to my infraumbilical trocar. The incisions were then made with a knife and the trocars were placed under direct visualization of the laparoscope. Once these trocars were in place, I brought in the da Ellie robot and docked it in the appropriate fashion, placed in the da Ellie vessel sealer in the left hand and monopolar ray in the right hand. I then took my place at the [facility] [employer] operative console and performed the following dissection. On the left side, I started at the infundibulopelvic ligament, bipolar cauterized and transected this using the vessel sealer. I then grasped the round ligament, bipolar cauterized this and transected using the vessel sealer. I then was able to grasp the entire broad ligament, bipolar cauterized and transected using the vessel sealer down to the level of the lower uterine segment. During this dissection, I took care to track the path of the ureter and stayed clear of its path. I then the anterior and posterior leaflets of the broad ligament. The anterior leaflet dissection was taken down to the anterior vaginal fornix. The posterior leaflet was taken around to the posterior vaginal fornix. This allowed me to skeletonize the uterine vessels laterally, bipolar cauterized and transected using the vessel sealer. I then performed a similar dissection on the right side; however, there was no ovary, so I started at the IP ligament, where it was still connected to the fallopian tube. I went across the IP ligament using the vessel sealer, bipolar cauterized and transected using the vessel sealer. I then grasped the round ligament, bipolar cauterized and transected using the vessel sealer. I then took this down to the lower uterine segment using the vessel sealer both sealing and cutting at the same time. Once I was at the lower uterine segment, I the anterior and posterior leaflets of the broad ligament, anteriorly was taken around the anterior vaginal fornix meeting the dissection from the other plane and the posterior leaflet was taken down to the posterior vaginal fornix. This allowed me to skeletonize the uterine vessels laterally, which I bipolar cauterized and transected using a vessel sealer. The colpotomy was performed at 12 and 6 o'clock using the monopolar ray and the Verito uterine manipulator, colpotomy ring was noted. I then took my dissection using the monopolar ray amputating the cervix away from the vaginal fornix. The specimen was then removed through the vagina. I then performed a change of instruments and began closing the vaginal cuff. I started at the lateral vaginal apices closing them using 2-0 Vicryl suture in a [id number] fashion, colposuspending them to the uterosacral ligaments. I then closed the remainder of the vaginal cuff using 2-0 V-Loc in a running fashion, after which hemostasis was noted from my dissection planes. I then removed all the robotic and laparoscopic instruments from the patient's pelvis and undocked the da Ellie robot. I scrubbed back into the case and proceeded with copiously irrigating the pelvis using normal saline laparoscopically. There was no active bleeding noted from any of my dissection planes. I placed Surgiflo hemostatic agent over all my planes of dissection to ensure excellent postoperative hemostasis. I then removed the lateral trocars under direct visualization of the laparoscope. The infraumbilical trocar was left in place both to introduce 10 mL of 0.25% Marcaine for postoperative pain management and to release insufflation. Once this was done, I removed this trocar as well. The skin was then reapproximated using 4-0 Monocryl in interrupted subcuticular stitches. Skin Affix was applied to the skin incisions and Band-Aids were placed over these. Liz catheter left in place. Two grams of Ancef and 500 mg of Flagyl were given preoperatively for infection prophylaxis. Job ID: [id number] DocumentID: [id number] Dictated Date: 12/26/2018 10:38:56 Sheeter Helper Date: 12/26/2018 15:04:57 Dictated By: ANT SANDOVAL DO
[2018-12-26 16:30] VITALS: BP 109/63
--- NOTE | 2018-12-26 16:30 | NUR ---
reports pain and nausea "better". will cont to monitor.
--- NOTE | 2018-12-26 19:15 | NUR ---
report given to next shift.
[2018-12-26 19:50] VITALS: BP 98/56
--- NOTE | 2018-12-26 19:50 | NUR ---
In pt room for exam and vs. Pt requesting pain meds for pain rated 2, but does not want nausea of narcotics. Toradol not yet due. zofran given. Pt sitting up and slowly eating dinner. Tolerating well with some nausea and no emesis. Pt states feels occasionally dizzy and appears pale to this rn.
--- NOTE | 2018-12-26 20:18 | NUR ---
Called dr isaac with update of pt status. Discussed pt output, appearance, vs, and s/s. No new orders at this time.
[2018-12-26 23:00] VITALS: BP 95/56
--- NOTE | 2018-12-26 23:00 | NUR ---
rn to room for scheduled meds and vs. pt up to br with standby assist. Pt denies dizziness, s/s. pt able to void. rin care done independently. pt back to bed. warm blanket given. Pt requesting cough drop. Lozenge given, sprite given, warm blanket given per request. IFV stopped per orders. IV converted to saline lock. water refilled. pt denies further needs. will monitor.
[2018-12-27 03:50] VITALS: BP 104/64
[2018-12-27] MEDS: IBUPROFEN 600 MG (MOTRIN) TAB PO PRN ×2 (05:16→10:40)
[2018-12-27 07:17] VITALS: BP 102/58
--- NOTE | 2018-12-27 08:10 | NUR ---
Dr. Washington here to see pt, D/C orders rec'd.
--- NOTE | 2018-12-27 08:41 | Anesthesia-General Post-Op ---
General Patient Condition Mental Status/LOC: Same as Preop Cardiovascular: Satisfactory Nausea/Vomiting: Absent Respiratory: Satisfactory Pain: Controlled Complications: Absent Post Op Complications Complications None Follow Up Care/Instructions Patient Instructions None needed. Anesthesia/Patient Condition Patient Condition Patient is doing well, no complaints, stable vital signs, no apparent adverse anesthesia problems. No complications reported per nursing. ELFEOG GUIDRY CRNA Dec 27, 2018 08:41
--- NOTE | 2018-12-27 10:50 | NUR ---
Discharge instructions explained to pt with copy provided to pt. Prescriptions previously given to pt, but explained again.Pt verbalizes understanding of teaching, denies questions or concerns at this time. Pt preparing to discharge and will call RN when ready.
--- NOTE | 2018-12-27 11:10 | NUR ---
Pt taken off unit via wheelchair accompanied by mother, child, RN. To private vehicle. All personal belongings with pt. No s/s of distress noted.
== END 2018-12-27 11:10 | disposition home or self-care (01) ==
LOC: SDC 07:00 → WS 11:40 → SDC 12-27 11:10
PROVIDERS: ATTEND Obstetrics & Gynecology
DX: N80.0 Endometriosis of uterus (principal); N83.02 Follicular cyst of left ovary; N87.1 Moderate cervical dysplasia; N83.8 Other noninflammatory disorders of ovary, fallopian tube and broad ligament
CPT/HCPCS: 86850; 86900; 86901; 94664